=== PATIENT | female | born 1975 | race Caucasian/White ===

== ENCOUNTER 2017-04-18 11:08 | Emergency (ER) | payer OTHER ==
--- NOTE | ~2017-04-18 | CR181 ---
[facility] A Service of [facility] RADIOLOGY TEXT RESULTS PATIENT: SANDI QUARLES LOCATION: [facility] : 73 UNIT #: [id number] AGE: [address]: Kerri Maldonado SEX: F ORDER DR: [id number] [facility] [address] [place], [place] [address] [id number] E MR#: [id number] Acc #: [id number] NAME: SANDI QUARLES : 1975 SEX: F STUDY DATE/TIME: 04/18/2017 12:12 UNIT: [facility] ROOM: STUDY DESCRIPTION: CR Lumbar Spine 2 or 3 Views Attending Physician: Kerri Maldonado Pa-C Ordering Physician: Kerri Maldonado Pa-C Primary Care Physician: Concepcion Soler A.P.R.N. MEDICAL IMAGING REPORT This report is preliminary unless electronic signature is present EXAM Lumbar spine, 3 views. INDICATION Minus low back pain for 6 weeks. COMPARISON No comparisons. FINDINGS Vertebral body heights and alignment and disc spaces are maintained. IMPRESSION Negative. Dictated by... Trung Laurent M.D. THIS IS AN ELECTRONICALLY VERIFIED REPORT Trung Laurent M.D. at 04/19/2017 7:29 AM CHIKIS/germaine TD: 04/18/2017 16:35 JOB #: [id number] MEDICAL IMAGING REPORT Page 1 of 1 COPY
[~2017-04-18 11:08] MED LIST: AMOXICILLIN PO; CYMBALTA PO; LORTAB 10-5001 EACH PO; ORTHO TRI-7 DAYS X PO; VICODIN 5/500 T1 TAB PO
[2017-04-18 12:00] LABS: URINE SOURCE CLEAN CATCH
[2017-04-18 12:10] LABS: URINE APPEARANCE CLOUDY; URINE BILIRUBIN NEG (NEG); URINE BLOOD 2+ (NEG); URINE COLOR DK YELLOW; URINE GLUCOSE NEG (NEG); URINE KETONE TRACE (NEG); URINE LEUKOCYTE ESTERASE TRACE (NEG); URINE NITRATE POS (NEG); URINE PH 5.5 (5-8); URINE PROTEIN 1+ (NEG); URINE SPECIFIC GRAVITY 1.031 (1.003-1.035)
[2017-04-18 12:14] LABS: CULTURE INDICATED? YES; URINE BACTERIA AUWI 4+ (NEGATIVE); URINE SQUAMOUS EPITHELIAL CELL MOD /[HPF]
== END 2017-04-18 13:04 | disposition home or self-care (01) ==
LOC: CFTX 11:08 → CED 11:08 → CFTX 11:49
PROVIDERS: Physician Assistant Medical
DX: G89.29 Other chronic pain (principal); M54.5 Low back pain; N39.0 Urinary tract infection, site not specified; F31.9 Bipolar disorder, unspecified; F32.9 Major depressive disorder, single episode, unspecified; F17.210 Nicotine dependence, cigarettes, uncomplicated
CPT/HCPCS: 72100; 81003; 84703; 87086; 87088; 87186; 96372; 99283; J1885